=== PATIENT | male | born 1940 | race Caucasian/White ===

== ENCOUNTER → 2017-12-15 | Day surgery (SDC) | payer MEDICARE ==
[~2017-12-15] VITALS: Ht 185.4 cm; Wt 115.2 kg
[~2017-12-15] MED LIST: ACETAMINOPHEN 1000 MG/100 ML 100 ML IV ONE; ALLO300T2 PO; ASPI-516 CHEW; BUPIVACAINE/EPINEPHRINE 0.25% PF 10 ML VIAL ONE; CHLORHEXIDINE GLUCONATE 2 % 1 PACK (2 CLOTHS) TOPICAL PRN; CISATRACURIUM BESYLATE 20 MG/10 ML VIAL ONE; DEXAMETHASONE SOD PHOS 4 MG/ML VIAL IV ONE; FISHCAP4 PO; GLYCOPYRROLATE 1 MG/5 ML SYRINGE IV PUSH ONE; LABETALOL HCL 100 MG/20 ML VIAL IV ONE; LACTATED RINGER'S 1000 ML INJ 1,000 ML IV ONE; LACTATED RINGER'S 1000 ML IV PRN; LIDOCAINE HCL 1% PF 5 ML SYRINGE OTHER ONE; LIPI10TA PO; LOSA100T PO; METOPROLOL TARTRATE 25 MG TAB PO PRN; MUPIROCIN 2% OINT 22 GM TUBE ONE; NEOSTIGMINE 5 MG/5 ML SYRINGE IV PUSH ONE; ONDANSETRON HCL 4 MG/2 ML VIAL IV PUSH ONE; POVIDONE IODINE 5% (ANTISEPSIS KIT) 4 APPLICATIONS EACH NARE PRN; PROPOFOL 200 MG/20 ML AMP IV ONE; SODIUM CHLORID 0.9% 500 ML IV PRN; TAMS0.4C4 PO; ePHEDrine/NS 25 MG/5 ML SYRINGE IV ONE
[2017-12-15] MEDS: ceFAZolin 2 GM/DEX PREMIX 50 ML IV SCH ×2 (08:05→08:57)
[2017-12-15 11:05] VITALS: BP 137/82; PULSE 50; RESP 18; TEMP 97.8; O2SAT 96
--- NOTE | 2017-12-15 17:45 | EKG ---
Date Performed: 12/15/2017 Time Performed: 07:11:12 PTAGE: 77 years EKG: Sinus rhythm MARKED LEFT AXIS DEVIATION LOW QRS VOLTAGE IN PRECORDIAL LEADS PATTERN CONSISTENT WITH PULMONARY DIS EASE ABNORMAL ECG NO PREVIOUS TRACING DOCTOR: Abigail Lord Interpretating Date/Time 12/15/2017 17:45:09
--- NOTE | 2017-12-20 16:52 | PD.OP ---
Operative Report Date of Surgery: Dec 15, 2017 Preoperative Diagnosis: (1) Mass on back Postoperative Diagnosis: (1) Mass on back Procedure: Excision of left lumbar back subfascial mass, 7 cm (55183) Surgeon: Darrius Villegas Damage Prevention Coordinator(s): . Operation and Findings: 77-year-old male who presented to clinic with a left lower back mass, requesting excision. Risks benefits and alternative treatments were discussed. All questions answered and the patient expressed understanding. Patient elected to assume the risks of excision of the above mass. Informed consent was obtained. The surgical site was marked in the preoperative holding bay. The patient was given antibiotics on-call to the operating room. The patient was taken to the operating room and all pressure points were padded. A surgical timeout was performed. After the smooth induction of general anesthesia, the patient was placed in a prone position. The surgical site was instilled with quarter percent Marcaine with epinephrine. The surgical site was prepped and draped in the usual sterile fashion. A transverse incision was oriented over the mass. The skin was incised and blunt dissection with the tenotomies and curved Mayos was used to free the mass up from the overlying skin and surrounding soft tissue. Following this the mass was dissected deeply , and found to extend below the superficial fascia. The mass was removed and sent for permanent pathology. The surgical site was copiously irrigated. Hemostasis was ensured with bipolar cautery. Inferior and superior superficial fascial flaps were raised and approximated with 2-0 PDS interrupted. Following this deep dermals using 3-0 PDS were placed in a three-point fashion to close down the space. Lastly a 4-0 Monocryl was run in a subcuticular fashion. The surgical site was cleaned and dressed with mupirocin ointment Xeroform gauze dry gauze fluffs and Tegaderm. All needle sponge and instrument counts were correct 2. The patient was awoken from anesthesia and arrived stable and doing well to the PACU. Darrius Villegas MD Dec 20, 2017 16:52
== END | disposition home or self-care (01) ==
LOC: HSDC 06:09
PROVIDERS: ATTEND Student in an Organized Health Care Education/Training Program
DX: L72.0 Epidermal cyst (principal); R94.31 Abnormal electrocardiogram [ECG] [EKG]
CPT/HCPCS: 00300; 21933; 88304; 93005; J0131; J0690; J1100; J2405; J2710; J3010; J7120; 88305